=== PATIENT | male | born 1980 | race Caucasian/White ===

== ENCOUNTER 2023-02-25 09:51 | Emergency (ER) | payer OTHER | END 2023-02-25 10:57 | disposition home or self-care (01) | LOC: ED 09:51 | DX: S50.862A Insect bite (nonvenomous) of left forearm, initial encounter (principal); I10 Essential (primary) hypertension; Z79.899 Other long term (current) drug therapy; W57.XXXA Bitten or stung by nonvenomous insect and other nonvenomous arthropods, initial encounter ==